=== PATIENT | male | born 1995 | race Caucasian/White ===

== ENCOUNTER 2025-04-07 06:44 | Day surgery (SDC) | payer OTHER, SELFPAY ==
--- NOTE | 2025-04-07 | PATH_ITS ---
[facility] Accession Number: [id number] No. of containers..04 Tissue . 01 Material submitted: . PART A: duodenum - DUODENUM PART B: gastrointestinal site - ANTRUM PART C: esophagus - ESOPHAGUS, DISTAL PART D: esophagus - ESOPHAGUS, MID . 01 Diagnosis: Part A: DUODENUM: Duodenal mucosa with no diagnostic alterations. No active inflammation and no evidence of celiac disease. . Part B: ANTRUM: Gastric mucosa with mild chronic inflammation. No Helicobacter organisms identified. No intestinal metaplasia, dysplasia, or malignancy identified. . Part C: ESOPHAGUS, DISTAL: Squamous mucosa with mildly increased intraepithelial eosinophils, compatible with reflux. No infectious organisms identified. See comment. . Specimen Comments: Only few scattered intraepithelial eosinophils are present, and the histologic features are not suggestive of eosinophilic esophagitis. Clinical correlation is recommended. . Part D: ESOPHAGUS, MID: Squamous mucosa with no diagnostic alterations. Eosinophils are not increased. [facility] 04/21/2025 1516 Local . 01 Electronically signed: . Trace Gurrola MD, Pathologist NPI- [id number] . 01 Gross description: . . . . Received four formalin-filled containers, each labeled with the patient's name: . A. In a container labeled duodenum, the specimen consists of two fragments of glynn, soft tissue which range in size from 0.2 x 0.1 x 0.1 cm to 0.4 x 0.3 x 0.2 cm. All fragments are totally submitted in cassette A. . B. In a container labeled antrum, the specimen consists of three fragments of glynn soft tissue which range in size from less than 0.1 cm to 0.2 x 0.2 x 0.2 cm. All fragments are totally submitted in cassette B. . C. In a container labeled distal esophagus, the specimen consists of three fragments of glynn soft tissue which range in size from 0.1 x 0.1 x 0.1 cm to 0.4 x 0.2 x 0.1 cm. All fragments are totally submitted in cassette C. . D. In a container labeled mid esophagus, the specimen consists of two fragments of glynn, soft tissue which range in size from 0.2 x 0.1 x 0.1 cm to 0.3 x 0.2 x 0.1 cm. All fragments are totally submitted in cassette D. ([id number]) /FRR 04/21/2025 [facility] . 01 Microscopic: . Part B: ANTRUM: An immunohistochemical stain was performed to evaluate for Helicobacter organisms and is negative. The control stains appropriately. * This test was developed and the performance characteristics were validated by [employer]. It has not been cleared or approved by the Food and Drug Administration. . Part C: ESOPHAGUS, DISTAL: An ABPAS stain was performed to evaluate for fungal organisms and is negative. The control stains appropriately. . 01 Pathologist provided ICD-10: K21.00, K29.50 . 01 CPT . 087217, 350544, 490531, 349255, [id number], [id number] Specimen Comment: A courtesy copy of this report has been sent to [phone] Performed at: 01 [facility] [id number] MD Trace Gurrola MD Phone: [phone]
[2025-04-07] MEDS: LACTATED RINGERS 1,000 ML 42 ML IV (06:53)
[2025-04-07 07:06] VITALS: BP 136/80; PULSE 80; RESP 16; TEMP 36.2; O2SAT 98
--- NOTE | 2025-04-07 07:40 | PM.PREOP ---
Pre-operative Note COVID-19 COVID-19 status: Not tested Interval Note History & Physical reviewed/Exam performed by Physician: Yes Changes to H&P: No ASA Class (for procedural sedation): II
--- NOTE | 2025-04-07 08:03 | PM.OP.EGD ---
Operative Date/Time/Diagnoses Date of procedure: 04/07/25 Time of procedure: 08:03 Pre-op diagnosis: Reflux Post-op diagnosis: same Procedure & Clinicians Study performed: Esophagogastroduodenoscopy Same procedure(s) as scheduled: Yes Surgeon: Nelson Mckenzie Anesthesia Type: MAC +/- Procedure Notes Procedure in detail: Surgeon: Nelson Mckenzie MD Anesthesia: Urbano Uribe MD A timeout was performed. A bite blocked was placed. The patient was positioned in the left lateral decubitus position. Anesthesia was administered. The endoscope was inserted through the bite block and passed through the esophagus and stomach and into the duodenum. The duodenal mucosa appeared normal. Random biopsies were taken from the duodenal mucosa with cold forceps. The scope was withdrawn into the duodenal bulb and no other abnormalities were seen. The scope was withdrawn into the stomach. There was mild antritis and random biopsies were taken from the antrum with forceps. The rest of the stomach was normal. The scope was retroflexed and no hiatal hernia was seen. The scope was withdrawn into the esophagus and there appeared to be mild esophagitis and random biopsies were taken with cold forceps from the distal and mid esophagus. The scope was withdrawn. The patient was awakened and brought to recovery. Sedation time: 9 minutes Findings: Mild antritis and esophagitis Estimated Blood Loss: 3 Complications: none Post-procedure Disposition: PACU
[2025-04-07 08:10] VITALS: BP 101/54; PULSE 72; RESP 16; TEMP 36.2; O2SAT 98
[2025-04-07 08:15] VITALS: BP 100/52; PULSE 72; RESP 16; O2SAT 95
[2025-04-07 08:20] VITALS: BP 100/58; PULSE 75; RESP 13; O2SAT 97
[2025-04-07 08:25] VITALS: BP 101/54; PULSE 69; RESP 10; O2SAT 98
[2025-04-07 08:37] VITALS: BP 102/66; PULSE 67; RESP 16; TEMP 36.2; O2SAT 100
== END 2025-04-07 09:15 | disposition home or self-care (01) ==
PROVIDERS: Referring Provider Surgery; Visit Provider Surgery
PROC: 0DJ08ZZ Inspection of Upper Intestinal Tract, Via Natural or Artificial Opening Endoscopic (ICD-10-PCS; CPT 43239; principal; 2025-04-07 07:45)
DX: K29.50 Unspecified chronic gastritis without bleeding (principal); K21.00 Gastro-esophageal reflux disease with esophagitis, without bleeding
CPT/HCPCS: 43239; J2704; J3010; J7120